=== PATIENT | female | born 1955 | race Caucasian/White ===

== ENCOUNTER 2018-04-16 15:48 | Outpatient (CLI) | payer OTHER ==
--- NOTE | 2018-04-17 16:23 | Mammography Report ---
Reason: BILAT SCREEN w ERIC Procedure Date: 04/16/2018 Accession Number: [id number] / [id number] Procedure: [facility] - Screening Mammo w/Eric CPT Code: FULL RESULT: EXAM: Screening Mammo w/Eric DATE: 04/16/2018 4:09 PM CLINICAL HISTORY: 62-year-old female with history of late childbearing. TECHNIQUE: Bilateral CC and MLO views were obtained. COMPARISON: 03/20/2015, 06/07/2012, 12/15/2009, 08/26/2008. FINDINGS: The breasts demonstrate heterogeneously dense fibroglandular parenchyma bilaterally. No suspicious masses, clustered microcalcifications, or regions of architectural distortion are identified. IMPRESSION: Negative examination RECOMMENDATION: Routine annual screening unless otherwise clinically indicated. BIRADS CATEGORY 1: Negative STANDARD QUALIFYING STATEMENTS: 1. This examination was not reviewed with the aid of Computer-Aided Detection (CAD). 2. A negative or benign imaging report should not delay biopsy if clinically suspicious findings are present. Consider surgical consultation if warrented. More than 5% of cancers are not identified by imaging. 3. Dense breasts may obscure an underlying neoplasm. 4. This examination was reviewed with the aid of 3D breast imaging (tomosynthesis).
== END 2018-04-16 15:49 | disposition home or self-care (01) ==
LOC: DI 15:48
PROVIDERS: ATTEND Family Medicine
DX: Z12.31 Encounter for screening mammogram for malignant neoplasm of breast (principal)
CPT/HCPCS: 77063; 77067

== ENCOUNTER 2019-02-27 11:11 | Day surgery (SDC) | payer OTHER ==
[2019-02-27] MEDS ORDERED: LACTATED RINGERS 1,000 ML IV ONE (11:40)
[2019-02-27] MEDS ORDERED: MIDAZOLAM 2 MG/2 ML VIAL IVP ONE (13:35)
[2019-02-27] MEDS ORDERED: fentaNYL 100 MCG/2 ML VIAL IVP ONE (13:35)
[2019-02-27 14:24] VITALS: BP 109/60
== END 2019-02-27 11:12 | disposition home or self-care (01) ==
LOC: SDS 11:11
PROVIDERS: ATTEND Internal Medicine
PROC: 0DJD8ZZ Inspection of Lower Intestinal Tract, Via Natural or Artificial Opening Endoscopic (ICD-10-PCS; principal; 2019-02-27 12:30)
DX: Z12.11 Encounter for screening for malignant neoplasm of colon (principal); K57.30 Diverticulosis of large intestine without perforation or abscess without bleeding; K64.8 Other hemorrhoids; Z80.0 Family history of malignant neoplasm of digestive organs
CPT/HCPCS: 45378; J7120

== ENCOUNTER 2020-05-28 09:54 | Outpatient (CLI) | payer OTHER ==
--- NOTE | 2020-05-29 13:53 | Mammography Report ---
BILATERAL DIGITAL SCREENING MAMMOGRAM 3D/2D: 05/28/2020 CLINICAL: Routine screening. Comparison is made to exams dated: 04/16/2018 mammogram, 03/20/2015 mammogram, 06/07/2012 mammogram, mammogram, and 08/26/2008 mammogram - [facility]. The tissue of both breast s is predominantly fatty. No significant masses, calcifications, or other findings are seen in either breast. There has been no significant interval change. IMPRESSION: NEGATIVE There is no mammographic evidence of malignancy. A 1 year screening mammogram is recommended. This exam was interpreted at Station ID: [id number]. NOTE: For mammograms, a report in lay terms will be sent to the patient. Approximately 15% of breast malignancies will not be visualized mammographically. In the management of a palpable breast mass, a negative mammogram must not discourage biopsy of a clinically suspicious lesion. Electronically Signed By: Roderick Frost M.D., jr/bjorn:05/28/2020 11:36:29 ACR BI-RADS Category 1: Negative 3341F PARENCHYMAL PATTERN: (F) - The breast(s) demonstrate(s) diffuse fatty replacement. BI-RADS CATEGORY: (1) - 1 RECOMMENDATION: (ANNUAL) - Recommend routine annual screening mammography. [id number] 1 year screening LATERALITY: (B)
== END 2020-05-28 09:55 | disposition home or self-care (01) ==
LOC: DI 09:54
PROVIDERS: ATTEND Family Medicine
DX: Z12.31 Encounter for screening mammogram for malignant neoplasm of breast (principal)
CPT/HCPCS: 77063; 77067